=== PATIENT | female | born 1990 | race Caucasian/White ===

== ENCOUNTER → 2020-02-10 | Outpatient (CLI) | payer OTHER ==
[~2020-02-10] MED LIST: COLACE 100MG C100 MG PO; HYDROXYZINE HCL25 MG PO; IBUPROFEN600 MG PO; PRENATAL VITAM1 EAC8 PO; PROZAC 10 MG CA10 MG PO; ZANTAC150 MG PO
== END ==
LOC: US 10:15
DX: R10.9 Unspecified abdominal pain (principal); K76.0 Fatty (change of) liver, not elsewhere classified
CPT/HCPCS: 76700

== ENCOUNTER → 2020-03-12 | Day surgery (SDC) | payer OTHER | END | disposition home or self-care (01) | LOC: OR 07:25 | DX: K21.00 Gastro-esophageal reflux disease with esophagitis, without bleeding (principal); K44.9 Diaphragmatic hernia without obstruction or gangrene; F41.9 Anxiety disorder, unspecified; F32.9 Major depressive disorder, single episode, unspecified; E66.01 Morbid (severe) obesity due to excess calories; Z68.35 Body mass index [BMI] 35.0-35.9, adult; Z79.899 Other long term (current) drug therapy | CPT/HCPCS: J2704; J7040 ==

== ENCOUNTER → 2021-07-15 | Outpatient (CLI) | payer OTHER | LOC: KOH-I 12:56 | DX: E04.1 Nontoxic single thyroid nodule (principal) | CPT/HCPCS: 76536 ==

== ENCOUNTER → 2021-10-08 | Outpatient (CLI) | payer OTHER | LOC: EXRD 09-30 09:30 | DX: R74.8 Abnormal levels of other serum enzymes (principal); K76.0 Fatty (change of) liver, not elsewhere classified | CPT/HCPCS: 76705 ==